=== PATIENT | female | born 1965 | race Caucasian/White ===

== ENCOUNTER 2018-12-29 06:18 | Day surgery (SDC) | payer MEDICAID ==
[~2018-12-29] VITALS: Ht 180.3 cm; Wt 121.6 kg
[2018-12-29] MEDS ORDERED: MIC5 PO (07:42)
[2018-12-29] MEDS ORDERED: ORE25 PO (07:42)
[2018-12-29] MEDS ORDERED: METF-336 PO (07:42)
[2018-12-29] MEDS ORDERED: MIDAZOLAM 2 MG/2 ML VIAL ONE (08:01)
[2018-12-29] MEDS ORDERED: fentaNYL 0.05 MG/ML VIAL ONE (08:01)
[2018-12-29] MEDS ORDERED: LIDOCAINE 2% 100 MG/5 ML UJET TP ONE (08:02)
[2018-12-29] MEDS ORDERED: fentaNYL 0.05 MG/ML VIAL IVP ONE (08:55)
== END 2018-12-29 09:40 | disposition home or self-care (01) ==
LOC: MDS 06:18 → MMU 06:18 → MDS 09:40
PROVIDERS: ATTEND Internal Medicine Gastroenterology
DX: Z12.11 Encounter for screening for malignant neoplasm of colon (principal); I10 Essential (primary) hypertension; E11.9 Type 2 diabetes mellitus without complications; E78.00 Pure hypercholesterolemia, unspecified; Z88.0 Allergy status to penicillin; Z79.84 Long term (current) use of oral hypoglycemic drugs; Z79.1 Long term (current) use of non-steroidal anti-inflammatories (NSAID); Z72.89 Other problems related to lifestyle; Z79.899 Other long term (current) drug therapy; Z90.49 Acquired absence of other specified parts of digestive tract; Z98.890 Other specified postprocedural states
CPT/HCPCS: 45378; 82948; J3010; J2250